=== PATIENT | male | born 1955 | race Caucasian/White ===

== ENCOUNTER 2016-10-30 19:22 | Emergency (ER) | payer BC ==
[~2016-10-30] VITALS: Ht 177.8 cm; Wt 62.8 kg
[~2016-10-30 19:22] MED LIST: OXYCODONE5 MG PO; SKELAXIN400 MG PO
[2016-10-30 19:28] VITALS: BP 168/109
[2016-10-30] MEDS ORDERED: NEO-SYNEPHRINE-15 ML LEFT NARE (22:33)
== END 2016-10-30 23:29 | disposition home or self-care (01) ==
LOC: EME 19:22
PROC: 2Y41X5Z Packing of Nasal Region using Packing Material (ICD-10-PCS; principal; 2016-10-30)
DX: R04.0 Epistaxis (principal); F17.200 Nicotine dependence, unspecified, uncomplicated
CPT/HCPCS: 99281; 99284

== ENCOUNTER 2017-02-05 10:25 | Day surgery (SDC) | payer BC ==
[~2017-02-05] VITALS: Ht 177.8 cm; Wt 60.3 kg
[~2017-02-05 10:25] MED LIST changes: +BENADRYL ALLERG25 MG PO; +BEVESPI AEROS10.7 GM IH; +BUPROPION HCL150 M2 PO; +LISINOPRIL5 MG PO; +MULTIPLE VITAM1 EAC1 PO; +NEO-SYNEPHRINE-15 ML LEFT NARE; +PROBIOTIC1 EAC2 PO
[2017-02-05 10:44] VITALS: BP 147/93
[2017-02-05 16:00] VITALS: BP 148/67
[2017-02-05 17:00] VITALS: BP 136/67
== END 2017-02-05 17:22 | disposition home or self-care (01) ==
LOC: SDC 10:25
DX: M20.41 Other hammer toe(s) (acquired), right foot (principal); M24.574 Contracture, right foot; I10 Essential (primary) hypertension; L84 Corns and callosities; L90.5 Scar conditions and fibrosis of skin; F41.9 Anxiety disorder, unspecified; Z82.49 Family history of ischemic heart disease and other diseases of the circulatory system; Z91.09 Other allergy status, other than to drugs and biological substances; J44.9 Chronic obstructive pulmonary disease, unspecified
CPT/HCPCS: 73630; J0690; J1100; J1170; J1200; J1885; J2250; J2405; J3010; S0020

== ENCOUNTER → 2017-03-06 | Outpatient (CLI) | payer BC ==
[~2017-03-06] MED LIST changes: +FLEXERIL10 MG PO; +PERCOCET 5/31 TABLET PO
== END | disposition home or self-care (01) ==
LOC: RAD 16:32
DX: R07.81 Pleurodynia (principal)
CPT/HCPCS: 71111